=== PATIENT | male | born 1970 | race Caucasian/White ===

== ENCOUNTER → 2019-01-07 | Outpatient (CLI) | payer OTHER ==
[2019-01-07 11:36] LABS: HCT 48.8 % (39.0-53.0); MCH 30.7 pg (25.0-35.0); MCHC 32.8 g/dL (31.0-37.0); MCV 93.6 fL (80.0-100.0); Mean Platelet Volume 8.2; Platelet Count 271 k/uL (150-450); RBC 5.22 m/uL (4.30-5.90); WBC 7.3 k/uL (3.8-10.6)
[2019-01-07 16:31] LABS: Vitamin D 25 Hydroxy 15.7 ng/mL (30.0-100.0)
[2019-01-07 16:39] LABS: African American GFR (CKD) 102.7 (60.0-200.0); Albumin 4.7 g/dL (3.80-4.90); Albumin/Globulin Ratio 2.76 (1.60-3.17); Anion Gap 10.3 mmol/L (4.00-12.00); Calcium 9.6 mg/dL (8.7-10.3); Carbon Dioxide 27.7 mmol/L (21.6-31.8); Chol/HDL Ratio 4.83; Globulin 1.7 g/dL (1.6-3.3); Non-African American GFR(CKD) 88.6 (60.0-200.0); Potassium 4.5 mmol/L (3.5-5.5); Total Bilirubin 0.8 mg/dL (0.2-1.2); Total Protein 6.4 g/dL (6.2-8.2)
[2019-01-07 17:35] LABS: Hemoglobin A1C 5.3 % (4.0-6.0)
== END | disposition home or self-care (01) ==
LOC: LABWHC1 09:58
PROVIDERS: ATTEND Family Medicine
DX: R53.83 Other fatigue (principal)
CPT/HCPCS: 36415; 80053; 80061; 82306; 83036; 84153; 84443; 84681; 85027

== ENCOUNTER → 2019-02-03 | Day surgery (SDC) | payer OTHER ==
[2019-01-30 09:07] VITALS: BMI 27.8
[~2019-02-03] MED LIST: LACTATED RINGERS 1,000 ML IV SCH; PROPOFOL 10 MG/ML 20 ML VIAL IV ONE
--- NOTE | 2019-02-03 11:02 | P.GSHP ---
History of Present Illness H&P Date: 02/03/19 Chief Complaint: Family history colon cancer This a 48-year-old male with a strong family history of colon cancer. Patient's father had colon cancer. Past Medical History Additional Past Medical History / Comment(s): seasonal allergies, hx kidney stone History of Any Multi-Drug Resistant Organisms: None Reported Additional Past Surgical History / Comment(s): kidney stone-lithotripsy Past Anesthesia/Blood Transfusion Reactions: No Reported Reaction Smoking Status: Current some day smoker - Past Family History Father Family Medical History: Cancer Additional Family Medical History / Comment(s): colon cancer Mother Family Medical History: Cancer Additional Family Medical History / Comment(s): lung cancer Medications and Allergies Home Medications Medication Instructions Recorded Confirmed Type Cyanocobalamin (Vitamin B-12) 1,000 mcg PO DAILY 01/30/19 01/30/19 History [Vitamin B-12] Iodine 1 tab PO DAILY 01/30/19 01/30/19 History Allergies Allergy/AdvReac Type Severity Reaction Status Date / Time No Known Allergies Allergy Verified 01/30/19 09:01 Surgical - Exam Vital Signs Resp BP Pulse Ox 16 141/80 93 L 02/03/19 10:41 02/03/19 10:41 02/03/19 10:41 - General well developed, well nourished, no distress - Eyes PERRL - ENT normal pinna - Neck no masses - Respiratory normal expansion - Cardiovascular Rhythm: regular - Abdomen Abdomen: soft, non tender Assessment and Plan Assessment: Family history: Cancer. We'll perform colonoscopy.
--- NOTE | 2019-02-03 11:11 | P.OP ---
Date of Procedure: 02/03/19 Preoperative Diagnosis: Family history of colon cancer Postoperative Diagnosis: Normal colonoscopy Procedure(s) Performed: Colonoscopy Anesthesia: MAC Surgeon: Max Caicedo Pathology: none sent Condition: stable Disposition: PACU Description of Procedure: PROCEDURE: The patient was placed on the endoscopy table in the lateral position. Digital rectal examination was performed which revealed no abnormalities. The prostate was symmetrical without nodules. Flexible colonoscope was then placed in the patient's anus and passed throughout the entire colon. The ileocecal valve was visualized. The cecum, ascending, transverse, descending and sigmoid colon were normal. The rectum was normal as well. There were no masses, polyps or diverticula noted in the entire colon. SUMMARY OF FINDINGS: Normal colonoscopy.
[2019-02-03 11:33] VITALS: BP 123/80; PULSE 77; RESP 16
== END ==
LOC: ORWHC2ENDO 10:25
PROVIDERS: ATTEND Surgery
DX: Z12.11 Encounter for screening for malignant neoplasm of colon (principal); Z80.0 Family history of malignant neoplasm of digestive organs; Z87.442 Personal history of urinary calculi; I10 Essential (primary) hypertension; K05.30 Chronic periodontitis, unspecified; Z80.3 Family history of malignant neoplasm of breast; Z80.1 Family history of malignant neoplasm of trachea, bronchus and lung
CPT/HCPCS: J2704; G0105; 45378

== ENCOUNTER 2022-06-12 21:24 | Inpatient (IN) | payer BC, OTHER ==
[2022-06-12] MEDS ORDERED: methylPREDNISolone SOD SUCCI 125 MG/2 ML VIAL IV STA (21:37)
[2022-06-12] MEDS ORDERED: IPRATROPIUM-ALBUTEROL 3 ML NEB INHALATION STA (21:37)
[2022-06-12] MEDS ORDERED: ACETAMINOPHEN TAB 500 MG TAB PO STA (21:52)
--- NOTE | 2022-06-12 21:53 | ED ---
General Adult HPI - General Chief complaint: Shortness of Breath Stated complaint: SOB Time Seen by Provider: 06/12/22 21:32 Source: patient, RN notes reviewed Mode of arrival: EMS Limitations: no limitations - History of Present Illness Initial comments: Patient is a pleasant 21-year-old male presenting to the emergency department with concerns with difficulty in breathing. Onset of symptoms was a few days ago. Patient does have cough with green sputum. Patient does have history of asthma. Patient also has nasal congestion and chest congestion. - Related Data Home Medications Medication Instructions Recorded Confirmed Cyanocobalamin (Vitamin B-12) 1,000 mcg PO DAILY 01/30/19 01/30/19 [Vitamin B-12] Iodine 1 tab PO DAILY 01/30/19 01/30/19 Allergies Allergy/AdvReac Type Severity Reaction Status Date / Time No Known Allergies Allergy Verified 06/12/22 21:32 Review of Systems ROS Statement: Those systems with pertinent positive or pertinent negative responses have been documented in the HPI. ROS Other: All systems not noted in ROS Statement are negative. Constitutional: Denies: chills Eyes: Denies: eye pain ENT: Reports: congestion. Denies: ear pain Respiratory: Reports: cough, dyspnea Cardiovascular: Denies: chest pain Endocrine: Reports: fatigue Gastrointestinal: Denies: abdominal pain Genitourinary: Denies: urgency Musculoskeletal: Denies: back pain Skin: Denies: rash Neurological: Denies: weakness Past Medical History Past Medical History: Asthma Additional Past Medical History / Comment(s): seasonal allergies, hx kidney stone History of Any Multi-Drug Resistant Organisms: None Reported Additional Past Surgical History / Comment(s): kidney stone-lithotripsy Past Anesthesia/Blood Transfusion Reactions: No Reported Reaction Past Psychological History: No Psychological Hx Reported Smoking Status: Current every day smoker, Light tobacco smoker Past Alcohol Use History: Daily Past Drug Use History: None Reported - Past Family History Father Family Medical History: Cancer Additional Family Medical History / Comment(s): colon cancer Mother Family Medical History: Cancer Additional Family Medical History / Comment(s): lung cancer General Exam Limitations: no limitations General appearance: alert Head exam: Present: normocephalic Eye exam: Present: normal appearance Neck exam: Present: normal inspection Respiratory exam: Present: wheezes Cardiovascular Exam: Present: regular rate, normal rhythm GI/Abdominal exam: Present: soft. Absent: tenderness Extremities exam: Present: normal inspection. Absent: pedal edema, calf tenderness Neurological exam: Present: alert Psychiatric exam: Present: normal affect, normal mood Skin exam: Present: normal color Course Vital Signs 06/12/22 21:33 Temperature 100.7 F H Pulse Rate 89 Respiratory 18 Rate Blood Pressure 120/75 O2 Sat by Pulse 91 L Oximetry EKG Findings - EKG Results: EKG: interpreted by ERMD, sinus rhythm, normal axis, normal QRS, normal ST/T Medical Decision Making - Medical Decision Making Pulse ox 93% on 2 L nasal cannula. Patient positive for influenza 8. Patient updated on results and plan. Dr. Maciel has been paged for admission of this patient. Was pt. sent in by a medical professional or institution? @ -n Did you speak to anyone other than the patient for history? @ -n Did you review nursing and triage notes? @ -Yes and agree Were old charts reviewed? @ -n Differential Diagnosis? @ -Differential Dyspnea: Coronary syndrome, arrhythmia, tamponade, asthma, COPD, pulmonary embolism, pneumonia, pneumothorax, pulmonary effusion, anaphylaxis, diabetic ketoacidosis, flailed chest, pulmonary contusion, diaphragmatic rupture, anemia, neuromu scular, this is not meant to be an all-inclusive list. EKG interpreted by me (3pts min.)? @ -[none] X-rays interpreted by me (1pt min.)? @ -y CT interpreted by me (1pt min.)? @ -[none] U/S interpreted by me (1pt. min.)? @ -[none] What testing was considered but not performed? (CT, X-rays, U/S, labs)? Why? @ n What meds were considered but not given? Why? @ -[none] Did you discuss the management of the patient with other professionals? @ -Dr. whitfield has been paged for admission Did you reconcile home meds? @ -Review Was smoking cessation discussed for >3mins.? @ -[none] Was critical care preformed (if so, how long)? @ -[none] Were there social determinants of health that impacted care today? How? (Homelessness, low income, unemployed, alcoholism, drug addiction, transportation, low edu. Level, literacy, decrease access to med. care, [facility], rehab)? @ - Was there de-escalation of care discussed even if they declined? (Discuss DNR or withdrawal of care, Hospice)? @ - What co-morbidities impacted this encounter? (DM, HTN, Smoking, COPD, CAD, Cancer, CVA, Hep., AIDS, mental health diagnosis, sleep apnea, morbid obesity)? @ -History of asthma with influenza infection Was patient admitted / discharged? @ -Admitted Undiagnosed new problem with uncertain prognosis? @ -[none] Drug Therapy requiring intensive monitoring for toxicity (Heparin, Nitro, Insulin, Cardizem)? @ -[none] Were any procedures done? @ -[none] Diagnosis/symptom? @ -Influenza, asthma Acute, or Chronic, or Acute on Chronic? @ -Acute influenza, acute on chronic asthma Uncomplicated (without systemic symptoms) or Complicated (systemic symptoms)? @ -Complicated with hypoxia Side effects of treatment? @ -[none] Exacerbation, Progression, or Severe Exacerbation] @ -Exacerbation of asthma Poses a threat to life or bodily function? @ -Yes - Lab Data Result diagrams: 06/12/22 21:38 06/12/22 21:38 Lab Results 06/12/22 06/12/22 06/12/22 Range/Units 21:38 21:38 21:38 WBC 15.8 H (3.8-10.6) k/uL RBC 4.80 (4.30-5.90) m/uL Hgb 15.3 (13.0-17.5) gm/dL Hct 42.6 (39.0-53.0) % MCV 88.7 (80.0-100.0) fL MCH 32.0 (25.0-35.0) pg MCHC 36.1 (31.0-37.0) g/dL RDW 11.7 (11.5-15.5) % Plt Count 339 (150-450) k/uL MPV 8.2 Neutrophils % 85 % Lymphocytes % 7 % Monocytes % 5 % Eosinophils % 0 % Basophils % 1 % Neutrophils # 13.5 H (1.3-7.7) k/uL Lymphocytes # 1.2 (1.0-4.8) k/uL Monocytes # 0.8 (0-1.0) k/uL Eosinophils # 0.1 (0-0.7) k/uL Basophils # 0.1 (0-0.2) k/uL PT 10.2 (9.0-12.0) sec INR 1.0 (<1.2) APTT 23.6 (22.0-30.0) sec Sodium 139 (137-145) mmol/L Potassium 3.4 L (3.5-5.1) mmol/L Chloride 104 (98-107) mmol/L Carbon Dioxide 24 (22-30) mmol/L Anion Gap 11 mmol/L BUN 16 (9-20) mg/dL Creatinine 0.79 (0.66-1.25) mg/dL Est GFR (CKD-EPI)AfAm >90 (>60 ml/min/1.73 sqM) Est GFR (CKD-EPI)NonAf >90 (>60 ml/min/1.73 sqM) Glucose 136 H (74-99) mg/dL Plasma Lactic Acid Anthony (0.7-2.0) mmol/L Calcium 8.7 (8.4-10.2) mg/dL Total Bilirubin 1.0 (0.2-1.3) mg/dL AST 28 (17-59) U/L ALT 64 H (4-49) U/L Alkaline Phosphatase 96 (38-126) U/L Total Protein 7.1 (6.3-8.2) g/dL Albumin 4.2 (3.5-5.0) g/dL Influenza Type A (PCR) (Not Detectd) Influenza Type B (PCR) (Not Detectd) RSV (PCR) (Not Detectd) SARS-CoV-2 (PCR) (Not Detectd) 06/12/22 06/12/22 Range/Units 21:38 21:38 WBC (3.8-10.6) k/uL RBC (4.30-5.90) m/uL Hgb (13.0-17.5) gm/dL Hct (39.0-53.0) % MCV (80.0-100.0) fL MCH (25.0-35.0) pg MCHC (31.0-37.0) g/dL RDW (11.5-15.5) % Plt Count (150-450) k/uL MPV Neutrophils % % Lymphocytes % % Monocytes % % Eosinophils % % Basophils % % Neutrophils # (1.3-7.7) k/uL Lymphocytes # (1.0-4.8) k/uL Monocytes # (0-1.0) k/uL Eosinophils # (0-0.7) k/uL Basophils # (0-0.2) k/uL PT (9.0-12.0) sec INR (<1.2) APTT (22.0-30.0) sec Sodium (137-145) mmol/L Potassium (3.5-5.1) mmol/L Chloride (98-107) mmol/L Carbon Dioxide (22-30) mmol/L Anion Gap mmol/L BUN (9-20) mg/dL Creatinine (0.66-1.25) mg/dL Est GFR (CKD-EPI)AfAm (>60 ml/min/1.73 sqM) Est GFR (CKD-EPI)NonAf (>60 ml/min/1.73 sqM) Glucose (74-99) mg/dL Plasma Lactic Acid Anthony 1.1 (0.7-2.0) mmol/L Calcium (8.4-10.2) mg/dL Total Bilirubin (0.2-1.3) mg/dL AST (17-59) U/L ALT (4-49) U/L Alkaline Phosphatase (38-126) U/L Total Protein (6.3-8.2) g/dL Albumin (3.5-5.0) g/dL Influenza Type A (PCR) Detected A (Not Detectd) Influenza Type B (PCR) Not Detected (Not Detectd) RSV (PCR) Not Detected (Not Detectd) SARS-CoV-2 (PCR) Not Detected (Not Detectd) - Radiology Data Interpreted by me: Chest x-ray does show some increase in interstitial density. Disposition Clinical Impression: Influenza, Asthma Disposition: ADMITTED IP TO THIS HOSP Is patient prescribed a controlled substance at d/c from ED?: No Referrals: Alo Maciel MD [Primary Care Provider] - 1-2 days Time of Disposition: 23:20
[2022-06-12 22:02] LABS: ALT 64 U/L (4-49); AST 28 U/L (17-59); African American GFR (CKD) >90 (>60 ml/min/1.73 sqM); Albumin 4.2 g/dL (3.5-5.0); Alkaline Phosphatase 96 U/L (38-126); Anion Gap 11 mmol/L; Basophils # (A) 0.1 k/uL (0-0.2); Basophils % (A) 1 %; Blood Urea Nitrogen 16 mg/dL (9-20); Calcium 8.7 mg/dL (8.4-10.2); Carbon Dioxide 24 mmol/L (22-30); Chloride 104 mmol/L (98-107); Eosinophils # (A) 0.1 k/uL (0-0.7); Eosinophils % (A) 0 %; Glucose 136 mg/dL (74-99); HCT 42.6 % (39.0-53.0); HGB 15.3 gm/dL (13.0-17.5); Lymphocytes # (A) 1.2 k/uL (1.0-4.8); Lymphocytes % (A) 7 %; MCHC 36.1 g/dL (31.0-37.0); MCV 88.7 fL (80.0-100.0); Mean Platelet Volume 8.2; Monocytes # (A) 0.8 k/uL (0-1.0); Monocytes % (A) 5 %; Neutrophils # (A) 13.5 k/uL (1.3-7.7); Neutrophils % (A) 85 %; Non-African American GFR(CKD) >90 (>60 ml/min/1.73 sqM); Platelet Count 339 k/uL (150-450); Potassium 3.4 mmol/L (3.5-5.1); RDW 11.7 % (11.5-15.5); Sodium 139 mmol/L (137-145); Total Protein 7.1 g/dL (6.3-8.2); WBC 15.8 k/uL (3.8-10.6)
--- NOTE | 2022-06-12 22:02 | XR ---
EXAMINATION TYPE: XR chest 2V DATE OF EXAM: 06/12/2022 COMPARISON: NONE HISTORY: Short of breath TECHNIQUE: 2 view FINDINGS: Heart size is normal. Lungs are clear of consolidation. There is slight coarsening of inter stitial markings. No heart failure seen. No pleural effusion. There are chest leads. Bony thorax is i ntact. IMPRESSION: There is some minimal interstitial pulmonary increased density. No pulmonary consolidatio n or heart failure.
[2022-06-12 22:09] LABS: Partial Thromboplastin Time 23.6 sec (22.0-30.0); Prothrombin Time 10.2 sec (9.0-12.0)
[2022-06-12] MEDS ORDERED: NALOXONE 0.4 MG/ML 1 ML VIAL IVP PRN (23:21)
[2022-06-12] MEDS ORDERED: ACETAMINOPHEN TAB 325 MG TAB PO PRN (23:21)
[2022-06-12] MEDS ORDERED: IPRATROPIUM-ALBUTEROL 3 ML NEB INHALATION PRN (23:21)
[2022-06-12] MEDS: OSELTAMIVIR 75 MG CAP PO SCH (23:42)
[2022-06-13] MEDS: methylPREDNISolone SOD SUCCI 125 MG/2 ML VIAL IV SCH ×5 (00:07→23:23)
[2022-06-13] MEDS: IPRATROPIUM-ALBUTEROL 3 ML NEB INHALATION SCH ×4 (08:25→21:44)
[2022-06-13 08:37] LABS: Basophils # (A) 0.04 X 10*3/uL (0.00-0.10); Basophils % (A) 0.3 %; Eosinophils # (A) 0 X 10*3/uL (0.04-0.35); Eosinophils % (A) 0 %; HCT 41.3 % (39.6-50.0); HGB 14.8 g/dL (13.0-17.0); Immature Grans, Automated 1.8 %; Lymphocytes # (A) 0.83 X 10*3/uL (0.90-5.00); Lymphocytes % (A) 5.5 %; MCH 31.2 pg (27.0-32.0); MCHC 35.8 g/dL (32.0-37.0); MCV 87.1 fL (80.0-97.0); Mean Platelet Volume 9.9 fL (9.5-12.2); Monocytes # (A) 0.39 X 10*3/uL (0.20-1.00); Monocytes % (A) 2.6 %; NRBC Per 100 WBC 0 /100 WBCS (0.0-0.0); Neutrophils # (A) 13.66 X 10*3/uL (1.80-7.70); Neutrophils % (A) 89.8 %; Platelet Count 366 X 10*3/uL (140-440); RBC 4.74 X 10*6/uL (4.40-5.60); RDW 11.6 % (11.5-14.5)
[2022-06-13 08:51] LABS: African American GFR (CKD) 114.2 (60.0-200.0); Albumin 4.4 g/dL (3.8-4.9); Albumin/Globulin Ratio 1.69 (1.60-3.17); Anion Gap 13.3 mmol/L (10.00-18.00); BUN/Creat Ratio 17.78 Ratio (12.00-20.00); Calcium 9.1 mg/dL (8.7-10.3); Carbon Dioxide 23.7 mmol/L (20.0-27.5); Globulin 2.6 g/dL (1.6-3.3); Non-African American GFR(CKD) 98.5 (60.0-200.0); Potassium 3.9 mmol/L (3.5-5.5); Total Bilirubin 0.7 mg/dL (0.30-1.20)
[2022-06-13] MEDS: OSELTAMIVIR 75 MG CAP PO SCH ×2 (09:29→21:44)
--- NOTE | 2022-06-13 13:24 | P.CNPUL ---
History of Present Illness Consult date: 06/13/22 Reason for consult: dyspnea History of present illness: 51-year-old male patient who presented emergency department because of worsening shortness of breath and the patient is currently hospitalized for an acute asthma exacerbation and acute influenza A infection. Noted the patient's blood work is essentially within normal limits. WBC count of 15.8 with a hemoglobin of 15.3 and a platelet count of 339. BUN is at 60 with a creatinine of 0.7. The patient's liver function tests essentially within normal limits. The rest of the vital screening including RSV and pelvis were both negative. Chest x-ray showing some minimal interstitial pulmonary infiltrates. No evidence of any consolidation. The patient is currently on 4 L of oxygen by nasal cannula with a pulse ox of 94%. The patient is already started on Tamiflu, DuoNeb nebulizer and IV Solu-Medrol. The patient has not patient admitted on Symbicort and Ventolin HFA on as-needed basis on outpatient basis. Review of Systems Constitutional: Reports fatigue, Reports weakness Eyes: denies as per HPI, denies blurred vision, denies bulging eye, denies decreased vision, denies diplopia, denies discharge, denies dry eye, denies irritation, denies itching, denies pain, denies photophobia, denies loss of peripheral vision, denies loss of vision, denies tunnel vision/blind spots Ears: deny: decreased hearing, ear discharge, earache, tinnitus Ears, nose, mouth and throat: Reports as per HPI Breasts: absent: as per HPI, gynecomastia Cardiovascular: Reports decreased exercise tolerance, Reports dyspnea on exertion Respiratory: Reports cough, Reports dyspnea, Reports wheezing Gastrointestinal: Reports as per HPI Genitourinary: Reports as per HPI Musculoskeletal: Reports as per HPI Musculoskeletal: absent: ankle pain, ankle stiffness, ankle swelling, as per HPI, elbow pain, elbow stiffness, elbow swelling, foot pain, foot stiffness, foot swelling, hand pain, hand stiffness, hand swelling, hip pain, hip stiffness, hip swelling, knee pain, knee stiffness, knee swelling, shoulder pain , shoulder stiffness, shoulder swelling, wrist pain, wrist stiffness, wrist swelling Integumentary: Reports as per HPI Neurological: Reports as per HPI Psychiatric: Reports as per HPI Endocrine: Reports as per HPI Hematologic/Lymphatic: Reports as per HPI Allergic/Immunologic: Reports as per HPI Past Medical History Past Medical History: Asthma Additional Past Medical History / Comment(s): seasonal allergies, hx kidney stone History of Any Multi-Drug Resistant Organisms: None Reported Additional Past Surgical History / Comment(s): kidney stone-lithotripsy Past Anesthesia/Blood Transfusion Reactions: No Reported Reaction Past Psychological History: No Psychological Hx Reported Smoking Status: Current every day smoker, Light tobacco smoker Past Alcohol Use History: Daily Past Drug Use History: None Reported - Past Family History Father Family Medical History: Cancer Additional Family Medical History / Comment(s): colon cancer Mother Family Medical History: Cancer Additional Family Medical History / Comment(s): lung cancer Medications and Allergies Home Medications Medication Instructions Recorded Confirmed Type Albuterol Sulfate [Ventolin HFA] 1 - 2 puff INHALATION RT-Q6H PRN 06/13/22 06/13/22 History Budesonide/Formoterol Fumarate 2 puff INHALATION RT-BID 06/13/22 06/13/22 History [Symbicort 160-4.5 Mcg Inhaler] Allergies Allergy/AdvReac Type Severity Reaction Status Date / Time No Known Allergies Allergy Verified 06/13/22 07:59 Physical Exam Vitals: Vital Signs Temp Pulse Resp BP Pulse Ox 06/13/22 12:28 87 18 06/13/22 12:21 85 18 06/13/22 11:58 72 18 94 L 06/13/22 10:29 86 18 97 06/13/22 09:00 97.9 F 72 18 126/76 95 06/13/22 08:36 76 16 06/13/22 08:26 74 16 96 06/13/22 06:00 75 16 122/85 95 06/13/22 04:00 16 06/13/22 00:30 98.9 F 81 16 126/76 96 06/13/22 00:05 81 06/13/22 00:00 16 06/12/22 23:58 81 06/12/22 21:33 100.7 F H 89 18 120/75 91 L Intake and Output 06/12/22 06/13/22 06/13/22 22:59 06:59 14:59 Other: Weight 95.254 kg The patient appeared well nourished and normally developed. Vital signs as documented. Head exam is unremarkable. No scleral icterus or corneal arcus noted. Neck is without jugular venous distension, thyromegaly, or carotid bruits. Carotid upstrokes are brisk bilaterally. Lungs diminished breath sounds bilaterally along with diffuse expiratory wheezes heard throughout the lung ordaz and the patient is currently on 2 L of O2 nasal cannula Cardiac exam reveals the PMI to be normally sized and situated. Rhythm is regular. First and second heart sounds normal. No murmurs, rubs or gallops. Abdominal exam reveals normal bowel sounds, no masses, no organomegaly and no aortic enlargement. Extremities are nonedematous and both femoral and pedal pulses are normal. Results - Laboratory Findings CBC and BMP: 06/13/22 05:51 06/13/22 05:51 PT/INR, D-dimer PT 10.2 sec (9.0-12.0) 06/12/22 21:38 INR 1.0 (<1.2) 06/12/22 21:38 Abnormal lab findings: Abnormal Labs 06/12/22 06/12/22 06/12/22 21:38 21:38 21:38 WBC 15.8 H Immature Gran # Neutrophils # 13.5 H Lymphocytes # Eosinophils # Potassium 3.4 L Glucose 136 H ALT 64 H Influenza Type A (PCR) Detected A 06/13/22 06/13/22 05:51 05:51 WBC 15.20 H Immature Gran # 0.28 H Neutrophils # 13.66 H Lymphocytes # 0.83 L Eosinophils # 0 L Potassium Glucose 226 H ALT 59 H Influenza Type A (PCR) - Diagnostic Findings Chest x-ray: image reviewed Assessment and Plan Plan: Acute hypoxic respiratory failure currently on 2 L of O2 nasal cannula Acute influenza infection with early signs of pneumonia with diffuse bilateral interstitial infiltrate and hypoxic respiratory failure. Consider secondary bacterial infections also Acute exacerbation of chronic bronchial asthma Shortness of breath secondary to above History of smoking Plan Put the patient on DuoNeb nebulized treatments [id number] and restart Symbicort IV Solu-Medrol 60 mg every 6 hours Tamiflu 75 mg by mouth twice a day Check pro calcitonin level Give the patient empiric antibiotic coverage with Zithromax 500 mg by mouth daily Reviewed the chest x-ray Anticipate improvement with the next 24-48 hours currently on 2 L of O2 nasal cannula and he remains actively bronchospastic and wheezy. Smoking cessation Covid 19 testing is negative, RSV is negative
[2022-06-13] MEDS: AZITHROMYCIN 500 MG TAB PO SCH (13:37)
--- NOTE | 2022-06-13 15:45 | HP ---
HISTORY AND PHYSICAL HISTORY OF PRESENT ILLNESS: A 51-year-old white male, came in with cough, congestion, and shortness of breath, failing all breathing treatments in the ER, found to have influenza A, started on Tamiflu, IV steroids, and DuoNeb updrafts for cough, congestion, and shortness of breath. He was saturating in the low 90s and high 80s on room air. HOME MEDICINES: Include vitamins. ALLERGIES: Negative. PAST MEDICAL HISTORY: Asthma and seasonal allergies. SOCIAL HISTORY: Everyday smoker. Daily alcohol. REVIEW OF SYSTEMS: Fourteen-point review of systems otherwise is negative except mentioned above. PHYSICAL EXAMINATION: VITAL SIGNS: Temperature is 100.7, pulse 80 to 89, respiratory rate 16 to 18, blood pressure 120s over 70s, O2 of 91% on room air. EKG shows sinus rhythm. CARDIOVASCULAR: S1 and S2. LUNGS: Scattered rhonchi and wheeze. HEMATOLOGY: Negative for Homans. PSYCHIATRIC: Fair mood and affect. GI: Soft. SKIN: Mild decreased skin turgor. LABORATORY DATA: White count is 15.8. Potassium 3.4. AST is 28, ALT 64. Lactic acid 1.1. ASSESSMENT: Asthma exacerbation, acute hypoxemic respiratory failure secondary to asthma exacerbation and influenza A, possible pneumonia secondary to influenza A. Tamiflu, steroids, updrafts. Prognosis is guarded. Please see further orders. MMODL / IJN: [id number] /
[2022-06-13] MEDS: SYMBICORT 160-4.5 MCG INHALER INHALATION SCH (21:44)
[2022-06-13] MEDS ORDERED: RX INFO: IV CONTRAST WAS GIVEN 1 EACH MISC MISCELLANE PRN (21:45)
[2022-06-14] MEDS: methylPREDNISolone SOD SUCCI 125 MG/2 ML VIAL IV SCH ×4 (05:18→22:58)
--- NOTE | 2022-06-14 07:47 | CT ---
EXAMINATION TYPE: CT chest w con CT DLP: 483.2 mGycm, Automated exposure control for dose reduction was used. DATE OF EXAM: 06/14/2022 6:39 AM COMPARISON: Chest radiograph 06/12/2022 CLINICAL INDICATION:Male, 51 years old with history of copd; TECHNIQUE: Multiple axial images were obtained through the chest following the administration of 100 cc of Isovue 300. Coronal and sagittal reformats reviewed. FINDINGS: LUNGS/ PLEURA: Minimal biapical pleural-parenchymal scarring. Patchy ground glass opacities within th e anterior left upper lobe with additional multifocal tree-in-bud opacities throughout the lungs. Pa tchy consolidation within the lingula. No pleural effusion or pneumothorax. AIRWAY: Patent and unremarkable.. HEART: Size within normal limits. No pericardial effusion. MEDIASTINUM: No gross evidence of adenopathy. VASCULATURE: No aortic aneurysm. MUSCULOSKELETAL: No acute osseous abnormalities SOFT TISSUES/LYMPH NODES: Unremarkable. LOWER NECK: No significant findings. UPPER ABDOMEN: A few bilobar hypodense subcentimeter lesions are too small to characterize but likely represent cysts. Nonobstructive bilateral renal calculi with largest in the visualized left kidney m easuring up to 1.3 cm and largest within the visualized right kidney measuring up to 1.1 cm. IMPRESSION: 1. Patchy groundglass opacities within the anterior left upper lobe with additional multifocal tree-i n-bud opacities throughout the lungs and patchy consolidation within the lingula. Findings suggest an infectious/inflammatory process. 2. Nonobstructive bilateral renal calculi.
[2022-06-14] MEDS: OSELTAMIVIR 75 MG CAP PO SCH ×2 (07:52→21:22)
[2022-06-14] MEDS: IPRATROPIUM-ALBUTEROL 3 ML NEB INHALATION SCH ×4 (08:21→20:53)
[2022-06-14] MEDS: SYMBICORT 160-4.5 MCG INHALER INHALATION SCH ×2 (08:23→20:53)
--- NOTE | 2022-06-14 11:24 | P.PN ---
Subjective Progress Note Date: 06/14/22 51-year-old male patient who presented emergency department because of worsening shortness of breath and the patient is currently hospitalized for an acute asthma exacerbation and acute influenza A infection. Noted the patient's blood work is essentially within normal limits. WBC count of 15.8 with a hemoglobin of 15.3 and a platelet count of 339. BUN is at 60 with a creatinine of 0.7. The patient's liver function tests essentially within normal limits. The rest of the vital screening including RSV and pelvis were both negative. Chest x-ray showing some minimal interstitial pulmonary infiltrates. No evidence of any consolidation. The patient is currently on 4 L of oxygen by nasal cannula with a pulse ox of 94%. The patient is already started on Tamiflu, DuoNeb nebulizer and IV Solu-Medrol. The patient has not patient admitted on Symbicort and Ventolin HFA on as-needed basis on outpatient basis. On 06/14/2022, significant improvement in the patient's condition, less bronchospastic and wheezy, on 3 L and I was able to check him on room air oxygen and his pulse ox was in order of 93%. Pro-calcitonin level was low. The patient remains on Tamiflu. The patient remains on DuoNeb nebulized treatments [id number]. He is on Symbicort and Ventolin HFA on an outpatient basis. He is using IV Solu-Medrol 60 mg every 6 hours. He feels less shortness of breath. No new complaints otherwise for now. A CAT scan of the chest was also done yesterday and based on my review of the CAT scan, there is minimal patchy areas of groundglass opacities in the left upper lobe and areas of multifocal tree-in-bud opacities throughout the lungs consistent with infectious pneumonia. This is most likely a viral pneumonia. The patient also has renal calculi chacorta aterally, nonobstructive. Objective - Vital Signs Vital signs: Vital Signs Temp 98.8 F 06/14/22 02:00 Pulse 80 06/14/22 08:35 Resp 20 06/14/22 07:52 BP 147/79 06/14/22 02:00 Pulse Ox 96 06/14/22 02:00 FiO2 Intake & Output 06/13/22 06/14/22 06/14/22 18:59 06:59 18:59 Intake Total 180 Balance 180 Weight 95.254 kg Intake: Oral 180 Other: Voiding Method Toilet # Voids 1 1 # Bowel Movements 0 0 - Exam The patient appeared well nourished and normally developed. Vital signs as documented. Head exam is unremarkable. No scleral icterus or corneal arcus noted. Neck is without jugular venous distension, thyromegaly, or carotid bruits. Carotid upstrokes are brisk bilaterally. Lungs diminished breath sounds bilaterally along with diffuse expiratory wheezes heard throughout the lung ordaz and the patient is currently on 2 L of O2 nasal cannula Cardiac exam reveals the PMI to be normally sized and situated. Rhythm is regular. First and second heart sounds normal. No murmurs, rubs or gallops. Abdominal exam reveals normal bowel sounds, no masses, no organomegaly and no aortic enlargement. E xtremities are nonedematous and both femoral and pedal pulses are normal. - Labs CBC & Chem 7: 06/13/22 05:51 06/13/22 05:51 Assessment and Plan Plan: Acute hypoxic respiratory failure currently on 2 L of O2 nasal cannula, clinically improving, oxygenation is also improving, CAT scan is consistent with viral pneumonia. Acute influenza infection with early signs of pneumonia with diffuse bilateral interstitial infiltrate and hypoxic respiratory failure. Consider secondary bacterial infections also Acute exacerbation of chronic bronchial asthma Shortness of breath secondary to above History of smoking Plan Put the patient on DuoNeb nebulized treatments [id number] and restart Symbicort IV Solu-Medrol 60 mg every 6 hours, and change the patient a prednisone burst taper at time of discharge. Tamiflu 75 mg by mouth twice a day Check pro calcitonin level levels are low Continue antibiotic coverage with Zithromax 500 mg by mouth daily Reviewed the chest x-ray Anticipate improvement with the next 24-48 hours currently on 2 L of O2 nasal cannula and he remains actively bronchospastic and wheezy. Smoking cessation Covid 19 testing is negative, RSV is negative The patient will benefit from another 24 hours of treatment here in the hospital and will hopefully be able to discharge him home on room air without oxygen supplementation.
[2022-06-14] MEDS: AZITHROMYCIN 500 MG TAB PO SCH (14:38)
[2022-06-15] MEDS: methylPREDNISolone SOD SUCCI 125 MG/2 ML VIAL IV SCH ×2 (06:05→12:19)
[2022-06-15 07:14] VITALS: RESP 18
[2022-06-15] MEDS: SYMBICORT 160-4.5 MCG INHALER INHALATION SCH (07:32)
[2022-06-15] MEDS: IPRATROPIUM-ALBUTEROL 3 ML NEB INHALATION SCH ×3 (07:32→15:52)
[2022-06-15] MEDS: OSELTAMIVIR 75 MG CAP PO SCH (08:29)
--- NOTE | 2022-06-15 12:49 | P.PN ---
Subjective Progress Note Date: 06/15/22 51-year-old male patient who presented emergency department because of worsening shortness of breath and the patient is currently hospitalized for an acute asthma exacerbation and acute influenza A infection. Noted the patient's blood work is essentially within normal limits. WBC count of 15.8 with a hemoglobin of 15.3 and a platelet count of 339. BUN is at 60 with a creatinine of 0.7. The patient's liver function tests essentially within normal limits. The rest of the vital screening including RSV and pelvis were both negative. Chest x-ray showing some minimal interstitial pulmonary infiltrates. No evidence of any consolidation. The patient is currently on 4 L of oxygen by nasal cannula with a pulse ox of 94%. The patient is already started on Tamiflu, DuoNeb nebulizer and IV Solu-Medrol. The patient has not patient admitted on Symbicort and Ventolin HFA on as-needed basis on outpatient basis. On 06/14/2022, significant improvement in the patient's condition, less bronchospastic and wheezy, on 3 L and I was able to check him on room air oxygen and his pulse ox was in order of 93%. Pro-calcitonin level was low. The patient remains on Tamiflu. The patient remains on DuoNeb nebulized treatments [id number]. He is on Symbicort and Ventolin HFA on an outpatient basis. He is using IV Solu-Medrol 60 mg every 6 hours. He feels less shortness of breath. No new complaints otherwise for now. A CAT scan of the chest was also done yesterday and based on my review of the CAT scan, there is minimal patchy areas of groundglass opacities in the left upper lobe and areas of multifocal tree-in-bud opacities throughout the lungs consistent with infectious pneumonia. This is most likely a viral pneumonia. The patient also has renal calculi chacorta aterally, nonobstructive. 06/15 2021, pulse ox is up to 97% on 2 L and the patient is able to maintain a saturation above 90% on room air. No new complaints. Continues to be on bronchodilators. Continues to be on Symbicort. Continues to be on IV Solu- Medrol. Recovering from acute influenza A infection. No nausea. No vomiting. No diarrhea. No new complaints. CT of the chest was noted from yesterday. It is consistent with a viral pneumonia. Objective - Vital Signs Vital signs: Vital Signs Temp 98.1 F 06/15/22 07:02 Pulse 72 06/15/22 11:10 Resp 18 06/15/22 08:30 BP 125/81 06/15/22 07:02 Pulse Ox 97 06/15/22 07:34 FiO2 Intake & Output 06/14/22 06/15/22 06/15/22 18:59 06:59 18:59 Intake Total 730 480 Balance 730 480 Intake: Oral 730 480 Other: Voiding Method Toilet Toilet # Voids 3 2 # Bowel Movements 0 - Exam The patient appeared well nourished and normally developed. Vital signs as documented. Head exam is unremarkable. No scleral icterus or corneal arcus noted. Neck is without jugular venous distension, thyromegaly, or carotid bruits. Carotid upstrokes are brisk bilaterally. Lungs diminished breath sounds bilaterally along with diffuse expiratory wheezes heard throughout the lung ordaz and the patient is currently on 2 L of O2 nasal cannula Cardiac exam reveals the PMI to be normally sized and situated. Rhythm is regular. First and second heart sounds normal. No murmurs, rubs or gallops. Abdominal exam reveals normal bowel sounds, no masses, no organomegaly and no aortic enlargement. Extremities are nonedematous and both femoral and pedal pulses are normal. - Labs CBC & Chem 7: 06/13/22 05:51 06/13/22 05:51 Assessment and Plan Plan: Acute hypoxic respiratory failure currently on 2 L of O2 nasal cannula, clinically improving, oxygenation is also improving, CAT scan is consistent with viral pneumonia. Acute influenza infection with early signs of pneumonia with diffuse bilateral interstitial infiltrate and hypoxic respiratory failure. Consider secondary bacterial infections also Acute exacerbation of chronic bronchial asthma Shortness of breath secondary to above History of smoking Plan Improved and the patient can be discharged home on Symbicort as maintenance, albuterol HFA 2 puffs 4 times a day, and a prednisone burst taper. He was also need to complete his course of Tamiflu. No need for home O2 at this point in time. Clinically much improved. Smoking cessation counseling was done.
[2022-06-15 14:09] VITALS: BP 137/75; TEMP 98.4
[2022-06-15] MEDS: AZITHROMYCIN 500 MG TAB PO SCH (14:42)
[2022-06-15 16:01] VITALS: PULSE 68
--- NOTE | 2022-06-16 01:12 | PN ---
PROGRESS NOTE DATE OF SERVICE: 06/14/2022 SUBJECTIVE: A 51-year-old white male, came in with influenza B, possible bilateral pneumonia, COPD, started on antibiotics, steroids, Tamiflu. The patient much improved. He sat in the low 90s to high 80s on room air. Possible discharge home in the morning. OBJECTIVE: LUNGS: Clear except for mild scattered wheeze. CARDIOVASCULAR: S1, S2. PSYCH: Fair mood and affect. NEUROLOGIC: Alert and oriented x3. ASSESSMENT: Influenza B, chronic obstructive pulmonary disease, possible aspiration pneumonia. Continue current treatments. We will discharge home to follow up tomorrow morning with discharge. Continue with steroids IV, Symbicort, and Tamiflu tonight. MMODL / IJN: [id number] /
== END 2022-06-15 16:55 | disposition home or self-care (01) | DRG 193 ==
LOC: EC 21:24 → 4SSUR 23:21
PROVIDERS: ADMIT Family Medicine; ATTEND Family Medicine
DX: J10.08 Influenza due to other identified influenza virus with other specified pneumonia (principal); J96.01 Acute respiratory failure with hypoxia; J44.0 Chronic obstructive pulmonary disease with (acute) lower respiratory infection; J69.0 Pneumonitis due to inhalation of food and vomit; J45.901 Unspecified asthma with (acute) exacerbation; J12.9 Viral pneumonia, unspecified; Z71.6 Tobacco abuse counseling; Z20.822 Contact with and (suspected) exposure to COVID-19; J30.2 Other seasonal allergic rhinitis; Z87.442 Personal history of urinary calculi; Z88.0 Allergy status to penicillin; Z80.1 Family history of malignant neoplasm of trachea, bronchus and lung; Z87.891 Personal history of nicotine dependence; Z79.51 Long term (current) use of inhaled steroids
CPT/HCPCS: 36415; 71046; 71260; 80053; 83605; 84145; 85025; 85610; 85730; 87636; 93005; 94640; 94760; 96374; 96376; 99285